=== PATIENT | female | born 1975 | race Caucasian/White ===

== ENCOUNTER 2016-10-23 15:30 | Emergency (ER) | payer MEDICAID ==
[2016-10-23] MEDS ORDERED: KETOROLAC TROMETHAMINE 60 MG/2 ML VIAL ONE (15:44)
[2016-10-23] MEDS ORDERED: SILVER SULFADIAZINE 25 APP/25 GM TUBE TOPICAL ONE (15:44)
[2016-10-23] MEDS ORDERED: HYDROmorphone HCL 1 MG/ML SYR ONE (16:15)
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
== END 2016-10-23 16:58 | disposition home or self-care (01) ==
LOC: ER 15:30
DX: T24.232A Burn of second degree of left lower leg, initial encounter (principal); T31.0 Burns involving less than 10% of body surface; X04.XXXA Exposure to ignition of highly flammable material, initial encounter; X06.2XXA Exposure to ignition of other clothing and apparel, initial encounter; Y92.019 Unspecified place in single-family (private) house as the place of occurrence of the external cause
CPT/HCPCS: 96372; 99283; J1170; J1885